=== PATIENT | male | born 1945 | race Caucasian/White ===

== ENCOUNTER 2021-02-13 10:56 | Inpatient (IN) ==
[2021-02-13] MEDS ORDERED: SODIUM CHLORIDE 0.9% 1000ML 1,000 ML IV STA (12:32)
[2021-02-13] MEDS ORDERED: VANCOMYCIN HCL 2,250 MG in SODIUM CHLORIDE 0.9% 500 ML IV STA (12:32)
[2021-02-13] MEDS ORDERED: VANCOMYCIN CONSULT ACTIVE PRN ×2 (12:32→21:26)
[2021-02-13] MEDS ORDERED: cefTRIAXone SODIUM 2,000 MG/70 ML BAG IV STA (12:34)
[2021-02-13] MEDS ORDERED: SODIUM CHLORIDE 0.9% 1000ML 1,000 ML IV ONE (12:36)
[2021-02-13 13:12] LABS: Basophils # (auto) 0.01 K/uL (0-0.2); Basophils % (auto) 0.2 %; Eosinophils # (auto) 0.05 K/uL (0-0.5); Eosinophils % (auto) 0.9 %; Hematocrit (blood only) 41.1 % (42-52); Hemoglobin 13.9 g/dL (14.0-18.0); Immature Granulocytes # (auto) 0.01 K/uL (0.00-0.02); Immature Granulocytes % (auto) 0.2 %; Lymphocytes # (auto) 0.62 K/uL (1.2-3.4); Lymphocytes % (auto) 11.3 %; Mean Corpuscular Hemoglobin 31.5 pg (25-34); Mean Corpuscular Hgb Conc 33.8 g/dL (32-36); Mean Corpuscular Volume 93.2 fL (80-100); Mean Platelet Volume 9.7 fL (7.4-10.4); Monocytes # (auto) 0.57 K/uL (0.11-0.59); Monocytes % (auto) 10.4 %; Neutrophils # (auto) 4.24 K/uL (1.4-6.5); Platelet Count 141 K/uL (130-400); RDW Coefficient of Variation 14.8 % (11.5-14.5); RDW Standard Deviation 50.2 fL (36.4-46.3); Red Blood Count 4.41 M/uL (4.7-6.1)
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
[2021-02-13 13:31] LABS: BUN Creatinine Ratio 16.3 (10-20); Calcium 8.7 mg/dl (8.5-10.1); Creatinine Clr Calc Pharmacy 68.4 ml/min; Est GFR (African American) 80.5 ml/min; Est GFR (Non-African American) 69.4 ml/min
[2021-02-13 13:37] LABS: Albumin Globulin Ratio 0.7 (0.9-2); Bilirubin,Total 0.4 mg/dl (0.2-1); Globulin 4.1 gm/dl (2.5-4.0); Total Protein 7.1 gm/dl (6.4-8.2)
--- NOTE | 2021-02-13 14:10 | XRay Report ---
SINGLE VIEW CHEST CLINICAL HISTORY: Fever. FINDINGS: An AP, portable, upright chest radiograph is obtained. No prior studies are available for c omparison at the time of dictation. The patient is status post midline sternotomy. The heart is top n ormal for projection. The pulmonary vasculature is noncongested. There is mild elevation of the right hemidiaphragm with bibasilar scarring/atelectasis. No airspace consolidation or large pleural effusi on is identified. No pneumothorax is seen. The skeletal structures are osteopenic. The bony thorax is grossly intact. Fusion hardware is seen in the lower cervical spine. IMPRESSION: No acute cardiopulmonary abnormality. ACT 112: Negative or not required by law. Electronically signed by: Kevin Oglesby M.D. 02/13/2021 2:08 PM
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
[2021-02-13] MEDS ORDERED: metroNIDAZOLE 500 MG/100 ML BAG IV STA (15:34)
[2021-02-13] MEDS ORDERED: OPTIRAY 320 100ml IV ONE (16:49)
--- NOTE | 2021-02-13 17:21 | CT Scan Report ---
CT OF THE ABDOMEN AND PELVIS WITH CONTRAST CLINICAL HISTORY: pain pump, abdominal cellulitis COMPARISON STUDY: None. TECHNIQUE: Following IV administration of 94 mL of Optiray, axial images of the abdomen and pelvis we re obtained from the lung bases to the proximal femurs. Images were reviewed in the axial, sagittal, and coronal planes. IV contrast was administered without complication. Automated exposure control wa s utilized for the study. A dose lowering technique was utilized adhering to the principles of ALARA . CT DOSE: 701.84 mGy.cm FINDINGS: Linear bibasilar opacities within the lower lungs favor atelectasis. Note is made of a 2.2 cm hepatic lobe cyst. Multiple subcentimeter hepatic lesions are too small to characterize but favor cysts. Moderate splenomegaly is noted. The adrenal glands, kidneys and pancreas are unremarkable. The re is no biliary or pancreatic ductal dilatation. There is no evidence for a bowel obstruction. The c aliber and wall thickness of small large bowel are normal. Major vasculature is patent. Postoperative findings within the lumbar spine are noted. Intrathecal pain pump is noted. Tip is at the upper T9 l evel. There is a left lower abdominal wall reservoir. Note is made of a thick wall rim-enhancing flui d collection along the superior aspect of the reservoir that measures approximately 5.9 x 1.6 cm. The re is no soft tissue gas. There is adjacent skin thickening and subcutaneous stranding suggestive of cellulitis. There are no additional fluid collections. Integrity of the proximal aspect of the cathet er cannot be assessed due to streak artifact from the reservoir. IMPRESSION: 1. Thick-walled rim-enhancing fluid collection along the superior aspect of the left lower abdominal wall reservoir. Sterility of this fluid collection cannot be assessed by CT however the findings sugg est an infectious process given associated subcutaneous stranding and skin thickening suggestive of c ellulitis. Findings discussed with Dr. Perez at time of dictation. Integrity of the proximal asp ect of the catheter cannot be assessed given streak artifact from the reservoir. 2. No bowel obstruction. 3. Moderate splenomegaly. ACT 112: Negative or not required by law. Electronically signed by: Amrit Fields M.D. 02/13/2021 5:19 PM
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
[2021-02-13] MEDS: CEFEPIME 1,000 MG in SYRINGE 0 ML IV SCH (22:32)
[2021-02-13] MEDS: ZINC SULFATE 220 MG CAPSULE PO SCH (22:32)
[2021-02-13] MEDS: SERTRALINE HCL 50 MG TABLET PO SCH (22:33)
[2021-02-13] MEDS: NORTRIPTYLINE HCL 25 MG CAP PO SCH (22:33)
[2021-02-13] MEDS: PRAMIPEXOLE DIHYDROCHLO 0.5 MG TAB PO SCH (22:33)
[2021-02-13] MEDS: MIRTAZAPINE TAB 15 MG TAB PO SCH (22:33)
[2021-02-13] MEDS: POTASSIUM CHLORIDE CRTAB 20 MEQ TABCR PO SCH (22:33)
[2021-02-13] MEDS: ROSUVASTATIN CALCIUM 5 MG TAB PO SCH (22:33)
[2021-02-13] MEDS: GABAPENTIN 100 MG CAP PO SCH (22:33)
[2021-02-13] MEDS: DOCUSATE SODIUM 100 MG CAP PO SCH (22:34)
[2021-02-13] MEDS: CHOLECALCIFEROL 1,000 UNITS 25 MCG TAB PO SCH (22:34)
[2021-02-13] MEDS: MULTIVITAMIN TAB PO SCH (22:34)
[2021-02-13] MEDS: FINASTERIDE 5 MG TAB PO SCH (22:34)
[2021-02-13] MEDS: FERROUS SULFATE 325 MG TAB PO SCH (22:34)
[2021-02-13] MEDS ORDERED: ARTIFICIAL TEARS OP OINT 3.5 GM TUBE OP PRN (22:35)
[2021-02-13] MEDS: CELECOXIB 100 MG CAP PO SCH (22:35)
--- NOTE | 2021-02-13 22:59 | Pharmacy Report ---
Pharmacy Abx Dose Short Note - Date of Service February 13, 2021 - Assessment & Plan Assessment 75 year old M admitted secondary to a possible skin and skin structure infection surrounding intrathecal pain pump * Started on Vancomycin, Ceftriaxone and Flagyl in ED. Switched to Vancomycin and Cefepime on admission. Cefepime dose may need increased if patient worsens. * Afebrile and without leukocytosis. Cultures pending - LLQ cx from outpatient setting with rare GPCs. * To OR in the AM Plan Vancomycin * Loading Dose: 2250 mg IV x 1 (25 mg/kg) * Maintenance Dose: 1250 mg IV every 12 hours (14 mg/kg) * Targeting an AUC/TYREL goal of 400-600 mg/L.hr * No trough will be ordered unless therapy to extend beyond 48 hours Pharmacy will continue to follow and will adjust dose/frequency as necessary. Thank you.
[2021-02-14] MEDS: VANCOMYCIN HCL 1,250 MG in SODIUM CHLORIDE 0.9% 250 ML IV SCH ×2 (01:55→15:48)
[2021-02-14] MEDS: LEVOTHYROXINE SODIUM 75 MCG TABLET PO SCH (05:32)
[2021-02-14 07:24] LABS: Basophils # (auto) 0.01 K/uL (0-0.2); Basophils % (auto) 0.2 %; Eosinophils # (auto) 0.08 K/uL (0-0.5); Eosinophils % (auto) 1.9 %; Hematocrit (blood only) 40.3 % (42-52); Hemoglobin 13.6 g/dL (14.0-18.0); Lymphocytes # (auto) 0.78 K/uL (1.2-3.4); Lymphocytes % (auto) 18.7 %; Mean Corpuscular Hemoglobin 31.6 pg (25-34); Mean Corpuscular Hgb Conc 33.7 g/dL (32-36); Mean Corpuscular Volume 93.5 fL (80-100); Mean Platelet Volume 9.9 fL (7.4-10.4); Monocytes # (auto) 0.38 K/uL (0.11-0.59); Monocytes % (auto) 9.1 %; Neutrophils # (auto) 2.92 K/uL (1.4-6.5); Neutrophils % (auto) 70.1 %; Platelet Count 159 K/uL (130-400); RDW Coefficient of Variation 14.6 % (11.5-14.5); RDW Standard Deviation 49.8 fL (36.4-46.3); Red Blood Count 4.31 M/uL (4.7-6.1); White Blood Count 4.17 K/uL (4.8-10.8)
[2021-02-14 07:51] LABS: BUN Creatinine Ratio 14.2 (10-20); Calcium 8.6 mg/dl (8.5-10.1); Creatinine Clr Calc Pharmacy 74.2 ml/min; Est GFR (African American) 90.9 ml/min; Est GFR (Non-African American) 78.4 ml/min; Potassium 4.2 mmol/L (3.5-5.1)
[2021-02-14] MEDS: TRIAMTERENE/HCTZ 37.5/25MG CAP PO SCH (09:01)
[2021-02-14] MEDS: CELECOXIB 100 MG CAP PO SCH (09:01)
[2021-02-14] MEDS: PANTOprazole 40 MG TAB PO SCH (09:01)
[2021-02-14] MEDS: PRAMIPEXOLE DIHYDROCHLO 0.5 MG TAB PO SCH ×2 (09:02→20:25)
[2021-02-14] MEDS: GABAPENTIN 100 MG CAP PO SCH ×3 (09:02→20:23)
[2021-02-14] MEDS: CHOLECALCIFEROL 1,000 UNITS 25 MCG TAB PO SCH ×2 (09:02→20:25)
[2021-02-14] MEDS: DOCUSATE SODIUM 100 MG CAP PO SCH ×3 (09:02→20:25)
[2021-02-14] MEDS: CEFEPIME 1,000 MG in SYRINGE 0 ML IV SCH (09:06)
--- NOTE | 2021-02-14 10:52 | Hospitalist Progress Note ---
Date of Service February 14, 2021 Assessment & Plan (1) Intrathecal pump infection: Plan: Staph species in cultureswitch to cefazolin plus Vanco; OR today for pump removal; ID consult (2) Degenerative disc disease: Plan: Patient with significant pain syndrome. Being followed by pain management, will defer to them regarding further treatment postoperatively after pump was removed (3) Hyperlipidemia: Plan: Continue Crestor 5 mg or pharmacy equivalent (4) Sleep apnea: Plan: Patient is on home BiPAP, will need to continue this while here (5) Pulmonary embolism: Plan: Eliquis on hold; resume after okayed by pain management.; SCDs for now Admission and Anticipated Discharge Date Admission Date: February 13, 2021 Subjective Follow-up of infection at the site of pumpno new issues; for pump removal today Physical Exam Physical Exam: Constitutional and general: No acute distress, looks biologic age Head and face: No puffiness, atraumatic Eyes: No scleral icterus, extraocular movements normal Neck: Supple, no JVD Musculoskeletal: No acute joint swelling, no bony abnormalities Skin/dermatologic/integument: No rash, no purpura Hematologic and lymphatic: pallor +, no petechia Gastrointestinal/abdomen: Large area of erythema at site of pump Neurologic: Cranial nerves intact, nonfocal Psychiatry: Awake, alert, pleasant, communicative Cardiovascular: Heart rhythm regular, no rub, no murmur, no gallop Respiratory: Chest movements equal, no use of accessory muscles, no adventitious sounds Extremities: No edema, no cyanosis Results & Data Results & Data ([facility]) Vital Signs (Past 12 Hours) Vital Signs Temp Pulse Pulse Pulse Resp BP Pulse Ox 02/14/21 07:41 36.9 C 80 16 124/70 93 02/14/21 07:39 70 02/14/21 03:00 36.8 C 67 20 104/61 95 02/13/21 23:21 37.3 C 80 20 136/77 96 Laboratory Results Laboratory Results - last 24 hr 02/13/21 02/13/21 02/13/21 13:03 13:03 13:03 WBC 5.50 RBC 4.41 L Hgb 13.9 L Hct 41.1 L MCV 93.2 MCH 31.5 MCHC 33.8 RDW Std Deviation 50.2 H RDW Coeff of Jana 14.8 H Plt Count 141 MPV 9.7 Immature Gran % (Auto) 0.2 Neut % (Auto) 77.0 Lymph % (Auto) 11.3 [place] % (Auto) 10.4 Eos % (Auto) 0.9 Baso % (Auto) 0.2 Neut # (Auto) 4.24 Lymph # (Auto) 0.62 L [place] # (Auto) 0.57 Eos # (Auto) 0.05 Baso # (Auto) 0.01 Immature Gran # (Auto) 0.01 Sodium 137 Potassium 4.0 Chloride 107 Carbon Dioxide 27 Anion Gap 3.0 BUN 17 Creatinine 1.04 Est Cr Clr Drug Dosing 68.4 Est GFR ( Amer) 80.5 Est GFR (Non-Af Amer) 69.4 BUN/Creatinine Ratio 16.3 Glucose 89 Lactate 0.9 Calcium 8.7 Total Bilirubin 0.4 AST 39 H ALT 53 Alkaline Phosphatase 71 Total Protein 7.1 Albumin 3.0 L Globulin 4.1 H Albumin/Globulin Ratio 0.7 L COVID-19 Eval Order SARS-CoV-2 (PCR) 02/13/21 02/13/21 02/14/21 13:13 13:13 06:54 WBC 4.17 L RBC 4.31 L Hgb 13.6 L Hct 40.3 L MCV 93.5 MCH 31.6 MCHC 33.7 RDW Std Deviation 49.8 H RDW Coeff of Jana 14.6 H Plt Count 159 MPV 9.9 Immature Gran % (Auto) 0.0 Neut % (Auto) 70.1 Lymph % (Auto) 18.7 [place] % (Auto) 9.1 Eos % (Auto) 1.9 Baso % (Auto) 0.2 Neut # (Auto) 2.92 Lymph # (Auto) 0.78 L [place] # (Auto) 0.38 Eos # (Auto) 0.08 Baso # (Auto) 0.01 Immature Gran # (Auto) 0.00 Sodium Potassium Chloride Carbon Dioxide Anion Gap BUN Creatinine Est Cr Clr Drug Dosing Est GFR ( Amer) Est GFR (Non-Af Amer) BUN/Creatinine Ratio Glucose Lactate Calcium Total Bilirubin AST ALT Alkaline Phosphatase Total Protein Albumin Globulin Albumin/Globulin Ratio COVID-19 Eval Order Covid19 at [facility] SARS-CoV-2 (PCR) NEGATIVE 02/14/21 06:54 WBC RBC Hgb Hct MCV MCH MCHC RDW Std Deviation RDW Coeff of Jana Plt Count MPV Immature Gran % (Auto) Neut % (Auto) Lymph % (Auto) [place] % (Auto) Eos % (Auto) Baso % (Auto) Neut # (Auto) Lymph # (Auto) [place] # (Auto) Eos # (Auto) Baso # (Auto) Immature Gran # (Auto) Sodium 142 Potassium 4.2 Chloride 113 H Carbon Dioxide 26 Anion Gap 3.0 BUN 13 Creatinine 0.94 Est Cr Clr Drug Dosing 74.2 Est GFR ( Amer) 90.9 Est GFR (Non-Af Amer) 78.4 BUN/Creatinine Ratio 14.2 Glucose 95 Lactate Calcium 8.6 Total Bilirubin AST ALT Alkaline Phosphatase Total Protein Albumin Globulin Albumin/Globulin Ratio COVID-19 Eval Order SARS-CoV-2 (PCR) PG Care Time/CCT Total # of Minutes Spent Total Time Spent with Patient: Total time spent is greater than 50% in coordination of care (as documented) at patient's floor/unit and/or counseling patient: Coding Level of Care Code 90649 Subseq Hosp Care Lvl 3 Diagnoses Intrathecal pump infection T85.738D Encounter type: subsequent encounter Degenerative disc disease Hyperlipidemia E78.5 Sleep apnea G47.30 Pulmonary embolism I26.99 (1) Intrathecal pump infection Encounter type: subsequent encounter Qualified Code(s): T85.738D - Infection and inflammatory reaction due to other nervous system device, implant or graft, subsequent encounter
[2021-02-14] MEDS ORDERED: PROTHROMBIN COMP CONC- KCENTRA 2,000 UNITS in SYRINGE 0 ML IV SCH (11:30)
[2021-02-14] MEDS ORDERED: CLINDAMYCIN PHOS 300 MG/2 ML VIAL ONE (12:28)
[2021-02-14] MEDS ORDERED: LIDOCAINE 2%/EPINEPHRINE 1:100,000 20ML ONE (12:28)
--- NOTE | 2021-02-14 12:32 | History & Physical Bridge Note ---
Date of Service February 14, 2021 History & Physical Bridge Note I have examined the patient, reviewed the History & Physical and in the interval since the performance of the History & Physical I have noted the following changes of clinical significance: no changes noted. Patient understands that a wound vac will be applied and will require wound clinic appointments.
[2021-02-14] MEDS ORDERED: PROPOFOL IV EMULSION 10 MG/ML 20 ML VIAL IV ONE (12:34)
[2021-02-14] MEDS ORDERED: fentaNYL citrate 100 MCG/2 ML VIAL ONE ×2 (12:34→14:05)
[2021-02-14] MEDS ORDERED: LIDOCAINE 2% 2 ML VIAL/AMP(20MG/ML) INFIL ONE (12:34)
[2021-02-14] MEDS ORDERED: ONDANSETRON INJ 2 MG/ML 2 ML VIAL ONE (12:36)
[2021-02-14] MEDS ORDERED: ACETAMINOPHEN 1000 MG/100 ML IV IV ONE (12:39)
[2021-02-14] MEDS ORDERED: ePHEDrine sulfate 50 MG/ML AMP IV PRN (12:40)
[2021-02-14] MEDS ORDERED: ONDANSETRON INJ 2 MG/ML 2 ML VIAL IV PRN (12:40)
[2021-02-14] MEDS ORDERED: HYDROmorphone INJ 2 MG/ML SYR/VIAL IV PRN (12:40)
[2021-02-14] MEDS ORDERED: ATROPINE SULFATE 0.1 MG/ML 10ML SYR IV PRN (12:40)
[2021-02-14] MEDS ORDERED: fentaNYL citrate 100 MCG/2 ML VIAL IV PRN (12:40)
[2021-02-14] MEDS ORDERED: DEXAMETHASONE SOD INJ 4 MG/ML VIAL ONE (13:36)
[2021-02-14] MEDS ORDERED: PHENYLEPHRINE HCL 10 MG/ML VIAL ONE (13:36)
--- NOTE | 2021-02-14 14:41 | Operative Report ---
Post Operative Report Pre & Post Diagnosis Operation Date: 02/14/21 13:00 Pre-Op Diagnosis: Infected Intrathecal Pain Pump Post-Op Diagnosis: Infected Intrathecal Pain Pump I identified the patient and participated in the time-out.: Yes Procedure Operation Date: 02/14/21 13:00 Actual Procedures p Removal of Pump Segment Intrathecal Catheter, Incision/Drainage/Debridement of Pocket and Application of Wound Vac(Not Applicable) - Shena Brown DO Surgeon Shena Brown DO [employer] none Estimated Blood Loss 45 Findings Consistent with Post-Op Diagnosis Fluids per anes record Specimens deep pocket culture intrathecal pump intrathecal catheter Drains wound vac Anesthesia Type General Complications none Disposition Accompanied Patient To Recovery: No Disposition: Recovery Room Indications infected intrathecal pump Description of Procedure INTRATHECAL PUMP AND CATHETER EXPLANTATION, INCISION/DRAINAGE/DEBRIDEMENT PUMP POCKET, PULSE IRRIGATION OF POCKET, WOUND VAC APPLICATION PREOPERATIVE DIAGNOSIS: infected intrathecal pump POSTOPERATIVE DIAGNOSIS: Same. COMPLICATIONS: None. SURGEONS: Dr. Shena Brown. EBL: 45ml ANESTHESIA: General. MATERIAL FORWARDED TO THE LAB: Explanted pump and catheter, deep pocket culture INDICATIONS: The patient was identified as having a intrathecal pocket infection. He does not have neurologic signs signaling spinal catheter segment infection. Decision was made to remove his intrathecal pump and a large portion of his intrathecal catheter maintaining the terminal spinal segment if possible. The patient was explained the risks, benefits, alternatives of the procedure and agreed to proceed as above. He was informed of his increased risks of bleeding and possible epidural hematoma due to Eliquis dosing despite Kcentra administration. Informed consent was obtained and witnessed. A time out was performed after the patient was brought into the Operating Room. Antibiotics were given. The patient was then induced with general anesthesia without complications and was placed in right lateral decubitus position. Fluoroscopy was utilized throughout the procedure. The thoracolumbar spine was prepped with duraprep and betadine and draped in sterile fashion. Using fluoroscopy to identify the catheter, incision was made and the intrathecal catheter spinal segment was identified utilizing electrocautery and blunt dissection. The catheter was ligated with 2 separate 0 silk sutures and 3 vascular clips. The incision was irrigated with aqueous iodophor and hemostasis was excellent. The incision was closed with 0 strata fix and 3-0 strata fix followed by Dermabond and Prineo. An Aquacel dressing was placed. Next, the drapes were removed the left lower quadrant was prepped with DuraPrep and Betadine. Sterile drapes were applied. An incision was made over the intrathecal pocket and the intrathecal pump was exposed utilizing blunt dissection and electrocautery. A large amount of purulent fluid was drained from the incision, cultures were taken. The intrathecal pump and the nonspinal segment of the catheter were removed along with the 4-0 Prolene retaining sutures. Some nonviable tissue was noted within the pocket and debrided. Hemostasis was good and was achieved through electrocautery. A 3 L bag of saline with clindamycin 300 mg was placed on a pulse crematory attendant and copious amounts of irrigation were utilized. Next, a wound vac was applied per protocol and suction of 125 mmHg was achieved. The patient emerged from general anesthesia and was taken to the recovery room in stable condition. I attest to the content of the Intraoperative Record and any orders documented therein. Any exceptions are noted below.
--- NOTE | 2021-02-14 15:08 | Anesthesiology Progress Note ---
Date of Service February 14, 2021 Anesthesia Post Procedure Vital Signs Vital Signs: Temp Pulse Pulse Pulse Resp BP BP 02/14/21 14:43 36.9 C 83 15 142/68 H 02/14/21 12:35 37.1 C 71 18 119/76 02/14/21 11:29 36.7 C 68 16 128/78 02/14/21 07:41 36.9 C 80 16 124/70 02/14/21 07:39 70 02/14/21 03:00 36.8 C 67 20 104/61 02/13/21 23:21 37.3 C 80 20 136/77 02/13/21 22:20 82 02/13/21 21:29 37.5 C 82 20 02/13/21 16:30 79 20 122/74 02/13/21 15:30 87 23 136/81 BP Pulse Ox 02/14/21 14:43 96 02/14/21 12:35 18 L 02/14/21 11:29 93 02/14/21 07:41 93 02/14/21 07:39 02/14/21 03:00 95 02/13/21 23:21 96 02/13/21 22:20 02/13/21 21:29 126/82 93 02/13/21 16:30 95 02/13/21 15:30 93 Pain Intensity Abdomen: Pain Intensity: 5 Transfer of Care Handoff Completed per policy Notes Mental Status: alert / awake / arousable and participated in evaluation Patient Amnestic to Procedure: Yes Nausea / Vomiting: adequately controlled Pain: adequately controlled Airway Patency, RR, SpO2: stable & adequate BP & HR: stable & adequate (pvcs) Hydration State: stable & adequate Anesthetic Complications: no major complications apparent and Pt Satisfied with anesthetic care
[2021-02-14] MEDS: MoRPHine SULFATE IR 15 MG TAB (IMMEDIATE RELEASE) PO PRN ×2 (16:38→23:45)
[2021-02-14] MEDS: CHECK fentaNYL PATCH PLACEMENT SCH ×2 (16:39→23:23)
[2021-02-14] MEDS: fentaNYL 25 MCG/HR TDSY TD SCH (16:39)
[2021-02-14] MEDS: ceFAZolin 2000MG 2,000 MG/15 ML SYR IV SCH (16:42)
[2021-02-14] MEDS: FERROUS SULFATE 325 MG TAB PO SCH (20:22)
[2021-02-14] MEDS: ROSUVASTATIN CALCIUM 5 MG TAB PO SCH (20:22)
[2021-02-14] MEDS: POTASSIUM CHLORIDE CRTAB 20 MEQ TABCR PO SCH (20:23)
[2021-02-14] MEDS: MIRTAZAPINE TAB 15 MG TAB PO SCH (20:23)
[2021-02-14] MEDS: ZINC SULFATE 220 MG CAPSULE PO SCH (20:23)
[2021-02-14] MEDS: MULTIVITAMIN TAB PO SCH (20:24)
[2021-02-14] MEDS: NORTRIPTYLINE HCL 25 MG CAP PO SCH (20:24)
[2021-02-14] MEDS: SERTRALINE HCL 50 MG TABLET PO SCH (20:24)
[2021-02-14] MEDS: FINASTERIDE 5 MG TAB PO SCH (20:24)
[2021-02-15] MEDS: ceFAZolin 2000MG 2,000 MG/15 ML SYR IV SCH ×3 (01:24→17:39)
[2021-02-15] MEDS: ACETAMINOPHEN 500 MG TAB PO PRN ×2 (01:25→19:32)
[2021-02-15] MEDS: VANCOMYCIN HCL 1,250 MG in SODIUM CHLORIDE 0.9% 250 ML IV SCH (01:25)
[2021-02-15] MEDS: LEVOTHYROXINE SODIUM 75 MCG TABLET PO SCH (06:18)
[2021-02-15] MEDS: MoRPHine SULFATE IR 15 MG TAB (IMMEDIATE RELEASE) PO PRN ×3 (06:18→23:45)
[2021-02-15 06:33] LABS: Eosinophils # (auto) 0.02 K/uL (0-0.5); Eosinophils % (auto) 0.5 %; Hematocrit (blood only) 40.5 % (42-52); Hemoglobin 13.4 g/dL (14.0-18.0); Lymphocytes # (auto) 0.78 K/uL (1.2-3.4); Lymphocytes % (auto) 18.8 %; Mean Corpuscular Hemoglobin 31.1 pg (25-34); Mean Corpuscular Hgb Conc 33.1 g/dL (32-36); Mean Platelet Volume 9.8 fL (7.4-10.4); Monocytes # (auto) 0.38 K/uL (0.11-0.59); Monocytes % (auto) 9.1 %; Neutrophils # (auto) 2.98 K/uL (1.4-6.5); Neutrophils % (auto) 71.6 %; Platelet Count 178 K/uL (130-400); RDW Coefficient of Variation 14.6 % (11.5-14.5); RDW Standard Deviation 50.3 fL (36.4-46.3); Red Blood Count 4.31 M/uL (4.7-6.1); White Blood Count 4.16 K/uL (4.8-10.8)
[2021-02-15 07:14] LABS: Albumin Globulin Ratio 0.7 (0.9-2); Albumin Level 2.5 gm/dl (3.4-5.0); BUN Creatinine Ratio 12.6 (10-20); Bilirubin,Total 0.2 mg/dl (0.2-1); Calcium 8.5 mg/dl (8.5-10.1); Creatinine Clr Calc Pharmacy 68.4 ml/min; Est GFR (African American) 82.4 ml/min; Est GFR (Non-African American) 71.1 ml/min; Globulin 3.8 gm/dl (2.5-4.0); Potassium 4.2 mmol/L (3.5-5.1); Total Protein 6.3 gm/dl (6.4-8.2)
[2021-02-15] MEDS: TRIAMTERENE/HCTZ 37.5/25MG CAP PO SCH (07:51)
[2021-02-15] MEDS: PANTOprazole 40 MG TAB PO SCH (07:51)
[2021-02-15] MEDS: DOCUSATE SODIUM 100 MG CAP PO SCH ×3 (07:51→19:25)
[2021-02-15] MEDS: GABAPENTIN 100 MG CAP PO SCH ×3 (07:51→19:24)
[2021-02-15] MEDS: PRAMIPEXOLE DIHYDROCHLO 0.5 MG TAB PO SCH ×2 (07:52→19:31)
[2021-02-15] MEDS: CHOLECALCIFEROL 1,000 UNITS 25 MCG TAB PO SCH ×2 (07:52→19:30)
[2021-02-15] MEDS: CHECK fentaNYL PATCH PLACEMENT SCH ×3 (07:52→23:46)
--- NOTE | 2021-02-15 09:19 | Pain Management Progress Note ---
Date of Service February 15, 2021 Assessment & Plan (1) Intrathecal pump infection: Encounter type: subsequent encounter Qualified Code(s): T85.738D - Infection and inflammatory reaction due to other nervous system device, implant or graft, subsequent encounter (2) Lumbar postlaminectomy syndrome: Plan: 1. Dressing on thoracolumbar region has been changed. 2. Continue with wound vac treatment. 3. Continue current medication regimen of Fentanyl patch 25mcg/hr and MS IR 15mg x 6 hours PRN. 4. Continue antibiotic treatment. 5. Will continue to monitor today to make sure he is tolerating the opioid medications and plan for discharge to home tomorrow. Admission and Anticipated Discharge Date Admission Date: February 13, 2021 Subjective Intrathecal pump was explanted yesterday due to infection that started 5 days ago. He has been placed on Fentanyl 25mg and MS IR 15mg x 6 hours and is reporting adequate pain relief of the chronic back pain this morning. He is reporting a pain of 3/10 currently. He has been able to get out of bed without difficulty. Plan to walk around the hospital after he finishes breakfast. There is some discomfort with the wound vac with movement but tolerable. He denies any side effects to the medications. No confusion, dizziness, drowsiness, or constipation. Physical Exam Physical Exam: GENERAL: This is a 75 year old male that does not appear in any acute distress. Able to go from sitting to standing without difficulty. HEAD/FACE: Normocephalic and atraumatic. EYES: No drainage or conjunctival injection. ENT: Nose without bleeding or discharge. Oral mucosa moist. NECK: Full ROM without apparent pain. No swelling or masses noted. RESPIRATORY: Patient with unlabored breathing. No signs of respiratory distress. CHEST/AXILLA: Chest movement symmetrical. No deformities noted. CARDIOVASCULAR: Patients heart rate is regular, with pulse rate as documented. No edema noted. ABDOMEN/GI: Wound vac in the LLQ abdomen. BACK: Moves without difficulty SKIN: The erythema along the left lower abdomen has significantly improved in brightness. From bright red now to a very mild pink. Size of erythema has decreased slightly. Thoracolumbar incision appear well with Prineo in place. MS/EXTREMITY: No swelling, no deformities. Moving extremities appropriately. NEURO: Alert and appears oriented. Speech is fluent. Cranial Nerves are grossly intact. PSYCH: Alert, pleasant, affect is calm
--- NOTE | 2021-02-15 09:22 | Hospitalist Progress Note ---
Date of Service February 15, 2021 Assessment & Plan (1) Intrathecal pump infection: Plan: MSSA in first culturestop Vanco; ID consulted (2) Degenerative disc disease: Plan: Patient with significant pain syndrome. Being followed by pain management, will defer to them regarding further treatment postoperatively after pump was removed (3) Hyperlipidemia: Plan: Continue Crestor 5 mg or pharmacy equivalent (4) Sleep apnea: Plan: Patient is on home BiPAP, will need to continue this while here (5) Pulmonary embolism: Plan: Eliquis on hold; discussed with Dr. Brownprovisionally resume tomorrow as long as drainage acceptable; SCDs for now Plan: Mild leukopenia can be followed Admission and Anticipated Discharge Date Admission Date: February 13, 2021 Subjective Intrathecal pump removaldoing much better. Physical Exam Physical Exam: Constitutional and general: No acute distress, looks biologic age Head and face: No puffiness, atraumatic Eyes: No scleral icterus, extraocular movements normal Neck: Supple, no JVD Musculoskeletal: No acute joint swelling, no bony abnormalities Skin/dermatologic/integument: No rash, no purpura Hematologic and lymphatic: pallor +, no petechia Gastrointestinal/abdomen: Wound VAC in place Neurologic: Cranial nerves intact, nonfocal Psychiatry: Awake, alert, pleasant, communicative Cardiovascular: Heart rhythm regular, no rub, no murmur, no gallop Respiratory: Chest movements equal, no use of accessory muscles, no adventitious sounds Extremities: No edema, no cyanosis Results & Data Results & Data ([facility]) Vital Signs (Past 12 Hours) Vital Signs Temp Pulse Pulse Pulse Resp BP Pulse Ox 02/15/21 07:00 36.7 C 76 20 132/77 92 02/15/21 03:00 37.1 C 77 18 120/73 96 02/14/21 23:00 37.3 C 88 20 128/75 92 02/14/21 22:20 67 Laboratory Results Laboratory Results - last 24 hr 02/15/21 02/15/21 06:11 06:11 WBC 4.16 L RBC 4.31 L Hgb 13.4 L Hct 40.5 L MCV 94.0 MCH 31.1 MCHC 33.1 RDW Std Deviation 50.3 H RDW Coeff of Jana 14.6 H Plt Count 178 MPV 9.8 Immature Gran % (Auto) 0.0 Neut % (Auto) 71.6 Lymph % (Auto) 18.8 [place] % (Auto) 9.1 Eos % (Auto) 0.5 Baso % (Auto) 0.0 Neut # (Auto) 2.98 Lymph # (Auto) 0.78 L [place] # (Auto) 0.38 Eos # (Auto) 0.02 Baso # (Auto) 0.00 Immature Gran # (Auto) 0.00 Sodium 141 Potassium 4.2 Chloride 111 H Carbon Dioxide 24 Anion Gap 5.0 BUN 13 Creatinine 1.02 Est Cr Clr Drug Dosing 68.4 Est GFR ( Amer) 82.4 Est GFR (Non-Af Amer) 71.1 BUN/Creatinine Ratio 12.6 Glucose 122 H Calcium 8.5 Total Bilirubin 0.2 AST 25 ALT 40 Alkaline Phosphatase 62 Total Protein 6.3 L Albumin 2.5 L Globulin 3.8 Albumin/Globulin Ratio 0.7 L Specimen Hemolysis PG Care Time/CCT Total # of Minutes Spent Total Time Spent with Patient: Total time spent is greater than 50% in coordination of care (as documented) at patient's floor/unit and/or counseling patient: Coding Level of Care Code 08355 Subseq Hosp Care Lvl 2 Diagnoses Intrathecal pump infection T85.738D Encounter type: subsequent encounter Degenerative disc disease Hyperlipidemia E78.5 Sleep apnea G47.30 Pulmonary embolism I26.99 (1) Intrathecal pump infection Encounter type: subsequent encounter Qualified Code(s): T85.738D - Infection and inflammatory reaction due to other nervous system device, implant or graft, subsequent encounter
[2021-02-15] MEDS ORDERED: MAGNESIUM HYDROXIDE SUSP 30 ML UDC PO PRN (11:00)
[2021-02-15] MEDS: POLYETHYLENE (MIRALAX) 17 GM PACK PO SCH (12:09)
[2021-02-15] MEDS: MIRTAZAPINE TAB 15 MG TAB PO SCH (19:24)
[2021-02-15] MEDS: POTASSIUM CHLORIDE CRTAB 20 MEQ TABCR PO SCH (19:24)
[2021-02-15] MEDS: MULTIVITAMIN TAB PO SCH (19:25)
[2021-02-15] MEDS: ZINC SULFATE 220 MG CAPSULE PO SCH (19:25)
[2021-02-15] MEDS: FINASTERIDE 5 MG TAB PO SCH (19:25)
[2021-02-15] MEDS: SERTRALINE HCL 50 MG TABLET PO SCH (19:30)
[2021-02-15] MEDS: FERROUS SULFATE 325 MG TAB PO SCH (19:31)
[2021-02-15] MEDS: NORTRIPTYLINE HCL 25 MG CAP PO SCH (19:31)
[2021-02-15] MEDS: FLUTICASONE PROPIONATE NA SPR 16 GM BTL SCH (19:32)
[2021-02-15] MEDS: ROSUVASTATIN CALCIUM 5 MG TAB PO SCH (19:32)
[2021-02-16] MEDS: ceFAZolin 2000MG 2,000 MG/15 ML SYR IV SCH ×3 (00:39→17:20)
[2021-02-16] MEDS: MoRPHine SULFATE IR 15 MG TAB (IMMEDIATE RELEASE) PO PRN ×3 (06:07→18:26)
[2021-02-16] MEDS: LEVOTHYROXINE SODIUM 75 MCG TABLET PO SCH (06:07)
[2021-02-16 07:34] LABS: Basophils # (auto) 0.01 K/uL (0-0.2); Basophils % (auto) 0.2 %; Eosinophils # (auto) 0.11 K/uL (0-0.5); Eosinophils % (auto) 2.4 %; Hematocrit (blood only) 44.4 % (42-52); Immature Granulocytes # (auto) 0.01 K/uL (0.00-0.02); Immature Granulocytes % (auto) 0.2 %; Lymphocytes # (auto) 1.24 K/uL (1.2-3.4); Mean Corpuscular Hgb Conc 33.8 g/dL (32-36); Mean Corpuscular Volume 94.7 fL (80-100); Mean Platelet Volume 9.5 fL (7.4-10.4); Monocytes # (auto) 0.45 K/uL (0.11-0.59); Monocytes % (auto) 9.8 %; Neutrophils # (auto) 2.77 K/uL (1.4-6.5); Neutrophils % (auto) 60.4 %; Platelet Count 203 K/uL (130-400); RDW Coefficient of Variation 14.5 % (11.5-14.5); RDW Standard Deviation 50.2 fL (36.4-46.3); Red Blood Count 4.69 M/uL (4.7-6.1); White Blood Count 4.59 K/uL (4.8-10.8)
[2021-02-16] MEDS: CHOLECALCIFEROL 1,000 UNITS 25 MCG TAB PO SCH ×2 (07:58→21:04)
[2021-02-16] MEDS: PRAMIPEXOLE DIHYDROCHLO 0.5 MG TAB PO SCH ×2 (07:59→21:03)
[2021-02-16] MEDS: PANTOprazole 40 MG TAB PO SCH (07:59)
[2021-02-16] MEDS: DOCUSATE SODIUM 100 MG CAP PO SCH ×3 (07:59→21:04)
[2021-02-16] MEDS: GABAPENTIN 100 MG CAP PO SCH ×3 (07:59→21:03)
[2021-02-16] MEDS: POLYETHYLENE (MIRALAX) 17 GM PACK PO SCH (07:59)
[2021-02-16] MEDS: CHECK fentaNYL PATCH PLACEMENT SCH ×2 (07:59→16:07)
[2021-02-16] MEDS: TRIAMTERENE/HCTZ 37.5/25MG CAP PO SCH (08:00)
[2021-02-16 08:09] LABS: Albumin Level 2.8 gm/dl (3.4-5.0); BUN Creatinine Ratio 17.6 (10-20); Calcium 8.8 mg/dl (8.5-10.1); Creatinine Clr Calc Pharmacy 55.3 ml/min; Est GFR (African American) 65.7 ml/min; Est GFR (Non-African American) 56.7 ml/min; Potassium 4.1 mmol/L (3.5-5.1)
[2021-02-16 08:12] LABS: Albumin Globulin Ratio 0.7 (0.9-2); Bilirubin,Total 0.4 mg/dl (0.2-1); Total Protein 6.8 gm/dl (6.4-8.2)
--- NOTE | 2021-02-16 09:03 | Pain Management Progress Note ---
Date of Service February 16, 2021 Assessment & Plan (1) Intrathecal pump infection: Encounter type: subsequent encounter Qualified Code(s): T85.738D - Infection and inflammatory reaction due to other nervous system device, implant or graft, subsequent encounter (2) Lumbar postlaminectomy syndrome: Plan: 1. Dressing on thoracolumbar region has been changed. 2. Continue with wound vac treatment. 3. Continue current medication regimen of Fentanyl patch 25mcg/hr and MS IR 15mg x 6 hours PRN. Prescriptions for these medications at discharge have been placed in his chart. 4. Continue antibiotic treatment. 5. Pain is well controlled. From a pain management standpoint will sign off on the patient. Please contact with any questions or concerns. 6. He will be contacted with a follow up appointment with our office. Admission and Anticipated Discharge Date Admission Date: February 13, 2021 Subjective Status post intrathecal pump explantation on 02/14/21. He is currently on Fentanyl 25mg and MS IR 15mg x 6 hours and is reporting adequate pain relief of the chronic back pain. He is pleased with his current pain relief. He is reporting a pain of 2/10 currently. He has been able to ambulate without any limitation. Wound vac is in place. He denies any side effects to the medications. No confusion, dizziness, drowsiness, or constipation. Physical Exam Physical Exam: GENERAL: This is a 75 year old male that does not appear in any acute distress. Able to go from sitting to standing without difficulty. HEAD/FACE: Normocephalic and atraumatic. EYES: No drainage or conjunctival injection. ENT: Nose without bleeding or discharge. Oral mucosa moist. NECK: Full ROM without apparent pain. No swelling or masses noted. RESPIRATORY: Patient with unlabored breathing. No signs of respiratory distress. CHEST/AXILLA: Chest movement symmetrical. No deformities noted. CARDIOVASCULAR: Patients heart rate is regular, with pulse rate as documented. No edema noted. ABDOMEN/GI: Wound vac in the LLQ abdomen. BACK: Moves without difficulty SKIN: Mild pink surrounding the incision site. Thoracolumbar incision appears well with Prineo in place. MS/EXTREMITY: No swelling, no deformities. Moving extremities appropriately. NEURO: Alert and appears oriented. Speech is fluent. Cranial Nerves are grossly intact. PSYCH: Alert, pleasant, affect is calm
--- NOTE | 2021-02-16 10:30 | Hospitalist Progress Note ---
Date of Service February 16, 2021 Assessment & Plan (1) Intrathecal pump infection: Plan: MSSA in all cultures; ID input appreciated; at present provisionally plan cefazolin for 2 weeks and then p.o. Keflex or alternativemay need reassessment; Dr. Brown thinks infection limited to pocket but will need follow-up; should ideally follow-up with ID if feasible; case management is having trouble with home health arrangement; PICC/midline today; will also need to wound clinic follow-up (2) Degenerative disc disease: Plan: Pain good control (3) Hyperlipidemia: Plan: Continue Crestor 5 mg or pharmacy equivalent (4) Sleep apnea: Plan: Patient is on home BiPAP, will need to continue this while here (5) Pulmonary embolism: Plan: Discussed with Dr. Browncan resume Eliquisdone Plan: Mild leukopenia can be followed; at present I discontinued daily labs Admission and Anticipated Discharge Date Admission Date: February 13, 2021 Subjective Presentation with intrathecal pump infectionpump removed; doing well; minimal drainage from wound VAC Physical Exam Physical Exam: Constitutional and general: No acute distress, looks biologic age Head and face: No puffiness, atraumatic Eyes: No scleral icterus, extraocular movements normal Neck: Supple, no JVD Musculoskeletal: No acute joint swelling, no bony abnormalities Skin/dermatologic/integument: No rash, no purpura Hematologic and lymphatic: pallor +, no petechia Gastrointestinal/abdomen: Wound VAC in place Neurologic: Cranial nerves intact, nonfocal Psychiatry: Awake, alert, pleasant, communicative Cardiovascular: Heart rhythm regular, no rub, no murmur, no gallop Respiratory: Chest movements equal, no use of accessory muscles, no adventitious sounds Extremities: No edema, no cyanosis Results & Data Results & Data ([facility]) Vital Signs (Past 12 Hours) Vital Signs Temp Pulse Pulse Resp BP Pulse Ox 02/16/21 08:00 36.9 C 93 H 18 155/72 H 02/16/21 04:00 36.4 C L 69 18 139/74 98 02/15/21 23:00 36.6 C 81 18 149/93 H 98 PG Care Time/CCT Total # of Minutes Spent Total Time Spent with Patient: Total time spent is greater than 50% in coordination of care (as documented) at patient's floor/unit and/or counseling patient: Coding Level of Care Code 22579 Subseq Hosp Care Lvl 2 Diagnoses Intrathecal pump infection T85.738D Encounter type: subsequent encounter Degenerative disc disease Hyperlipidemia E78.5 Sleep apnea G47.30 Pulmonary embolism I26.99 (1) Intrathecal pump infection Encounter type: subsequent encounter Qualified Code(s): T85.738D - Infection and inflammatory reaction due to other nervous system device, implant or graft, subsequent encounter
[2021-02-16] MEDS: APIXABAN 5 MG TABLET PO SCH ×2 (11:44→21:04)
[2021-02-16] MEDS: ROSUVASTATIN CALCIUM 5 MG TAB PO SCH (21:03)
[2021-02-16] MEDS: SERTRALINE HCL 50 MG TABLET PO SCH (21:03)
[2021-02-16] MEDS: MIRTAZAPINE TAB 15 MG TAB PO SCH (21:03)
[2021-02-16] MEDS: FINASTERIDE 5 MG TAB PO SCH (21:03)
[2021-02-16] MEDS: POTASSIUM CHLORIDE CRTAB 20 MEQ TABCR PO SCH (21:04)
[2021-02-16] MEDS: MULTIVITAMIN TAB PO SCH (21:04)
[2021-02-16] MEDS: NORTRIPTYLINE HCL 25 MG CAP PO SCH (21:04)
[2021-02-16] MEDS: FLUTICASONE PROPIONATE NA SPR 16 GM BTL SCH (21:05)
[2021-02-16] MEDS: ZINC SULFATE 220 MG CAPSULE PO SCH (21:05)
[2021-02-16] MEDS: FERROUS SULFATE 325 MG TAB PO SCH (21:05)
[2021-02-17] MEDS: CHECK fentaNYL PATCH PLACEMENT SCH ×3 (00:29→16:11)
[2021-02-17] MEDS: ceFAZolin 2000MG 2,000 MG/15 ML SYR IV SCH ×3 (00:30→17:42)
[2021-02-17] MEDS: MoRPHine SULFATE IR 15 MG TAB (IMMEDIATE RELEASE) PO PRN ×4 (00:30→18:58)
[2021-02-17] MEDS: LEVOTHYROXINE SODIUM 75 MCG TABLET PO SCH (06:30)
[2021-02-17] MEDS: PRAMIPEXOLE DIHYDROCHLO 0.5 MG TAB PO SCH ×2 (08:30→20:38)
[2021-02-17] MEDS: TRIAMTERENE/HCTZ 37.5/25MG CAP PO SCH (08:30)
[2021-02-17] MEDS: PANTOprazole 40 MG TAB PO SCH (08:30)
[2021-02-17] MEDS: DOCUSATE SODIUM 100 MG CAP PO SCH ×3 (08:30→20:35)
[2021-02-17] MEDS: GABAPENTIN 100 MG CAP PO SCH ×3 (08:30→20:37)
[2021-02-17] MEDS: APIXABAN 5 MG TABLET PO SCH ×2 (08:30→20:34)
[2021-02-17] MEDS: CHOLECALCIFEROL 1,000 UNITS 25 MCG TAB PO SCH ×2 (08:30→20:35)
[2021-02-17] MEDS: POLYETHYLENE (MIRALAX) 17 GM PACK PO SCH (08:30)
--- NOTE | 2021-02-17 11:55 | Hospitalist Progress Note ---
Date of Service February 17, 2021 Assessment & Plan (1) Intrathecal pump infection: Plan: MSSA in all cultures; ID input noted and appreciated; at present provisionally plan cefazolin for 2 weeks and then p.o. Keflex or alternativemay need reassessment; Dr. Brown thinks infection limited to pocket but will need [id number] not behaving like someone with lack of source control, that is doing very well; should ideally follow-up with ID if feasible; case management is having trouble with home health arrangement; will also need to wound clinic follow-up; ultrasound-guided deep IV inserted (2) Degenerative disc disease: Plan: Pain good control (3) Hyperlipidemia: Plan: Continue Crestor 5 mg or pharmacy equivalent (4) Sleep apnea: Plan: Patient is on home BiPAP, will need to continue this while here (5) Pulmonary embolism: Plan: Back on Eliquis; lab in a.m. (6) Hypertension: Plan: Noted fluctuating blood pressures but asymptomatic; stop thiazide/triamterene and observe Plan: Mild leukopenia can be followed Admission and Anticipated Discharge Date Admission Date: February 13, 2021 Subjective Presentation with intrathecal pump infectionpump removed; doing well Physical Exam Physical Exam: Constitutional and general: No acute distress, looks biologic age Head and face: No puffiness, atraumatic Eyes: No scleral icterus, extraocular movements normal Neck: Supple, no JVD Musculoskeletal: No acute joint swelling, no bony abnormalities Skin/dermatologic/integument: No rash, no purpura Hematologic and lymphatic: pallor +, no petechia Gastrointestinal/abdomen: Wound VAC in place Neurologic: Cranial nerves intact, nonfocal Psychiatry: Awake, alert, pleasant, communicative Cardiovascular: Heart rhythm regular, no rub, no murmur, no gallop Respiratory: Chest movements equal, no use of accessory muscles, no adventitious sounds Extremities: No edema, no cyanosis Results & Data Results & Data ([facility]) Vital Signs (Past 12 Hours) Vital Signs Temp Pulse Pulse Pulse Resp BP BP 02/17/21 11:24 78 02/17/21 11:22 36.6 C 87 18 98/66 L 02/17/21 07:29 36.7 C 80 18 94/61 L 02/17/21 03:45 36.7 C 87 20 108/71 Pulse Ox 02/17/21 11:24 02/17/21 11:22 94 02/17/21 07:29 92 02/17/21 03:45 94 PG Care Time/CCT Total # of Minutes Spent Total Time Spent with Patient: Total time spent is greater than 50% in coordination of care (as documented) at patient's floor/unit and/or counseling patient: Coding Level of Care Code 24899 Subseq Hosp Care Lvl 2 Diagnoses Intrathecal pump infection T85.738D Encounter type: subsequent encounter Degenerative disc disease Hyperlipidemia E78.5 Sleep apnea G47.30 Pulmonary embolism I26.99 Hypertension I10 (1) Intrathecal pump infection Encounter type: subsequent encounter Qualified Code(s): T85.738D - Infection and inflammatory reaction due to other nervous system device, implant or graft, subsequent encounter
[2021-02-17] MEDS: fentaNYL 25 MCG/HR TDSY TD SCH (16:11)
[2021-02-17] MEDS: FERROUS SULFATE 325 MG TAB PO SCH (20:36)
[2021-02-17] MEDS: FINASTERIDE 5 MG TAB PO SCH (20:36)
[2021-02-17] MEDS: FLUTICASONE PROPIONATE NA SPR 16 GM BTL SCH (20:37)
[2021-02-17] MEDS: MULTIVITAMIN TAB PO SCH (20:37)
[2021-02-17] MEDS: MIRTAZAPINE TAB 15 MG TAB PO SCH (20:38)
[2021-02-17] MEDS: ZINC SULFATE 220 MG CAPSULE PO SCH (20:39)
[2021-02-17] MEDS: POTASSIUM CHLORIDE CRTAB 20 MEQ TABCR PO SCH (20:39)
[2021-02-17] MEDS: ROSUVASTATIN CALCIUM 5 MG TAB PO SCH (20:39)
[2021-02-17] MEDS: NORTRIPTYLINE HCL 25 MG CAP PO SCH (20:39)
[2021-02-17] MEDS: SERTRALINE HCL 50 MG TABLET PO SCH (20:40)
[2021-02-18] MEDS: MoRPHine SULFATE IR 15 MG TAB (IMMEDIATE RELEASE) PO PRN ×4 (01:02→16:17)
[2021-02-18] MEDS: CHECK fentaNYL PATCH PLACEMENT SCH ×3 (01:03→16:19)
[2021-02-18] MEDS: ceFAZolin 2000MG 2,000 MG/15 ML SYR IV SCH ×3 (01:04→17:21)
[2021-02-18] MEDS: ACETAMINOPHEN 500 MG TAB PO PRN (01:09)
[2021-02-18] MEDS: LEVOTHYROXINE SODIUM 75 MCG TABLET PO SCH (06:32)
[2021-02-18 06:47] LABS: Basophils # (auto) 0.01 K/uL (0-0.2); Basophils % (auto) 0.2 %; Eosinophils # (auto) 0.15 K/uL (0-0.5); Eosinophils % (auto) 3.2 %; Hemoglobin 15.3 g/dL (14.0-18.0); Immature Granulocytes # (auto) 0.05 K/uL (0.00-0.02); Immature Granulocytes % (auto) 1.1 %; Lymphocytes # (auto) 1.27 K/uL (1.2-3.4); Mean Corpuscular Hemoglobin 31.2 pg (25-34); Mean Corpuscular Hgb Conc 33.3 g/dL (32-36); Mean Corpuscular Volume 93.9 fL (80-100); Mean Platelet Volume 9.5 fL (7.4-10.4); Monocytes # (auto) 0.69 K/uL (0.11-0.59); Monocytes % (auto) 14.7 %; Neutrophils # (auto) 2.53 K/uL (1.4-6.5); Neutrophils % (auto) 53.8 %; Platelet Count 220 K/uL (130-400); RDW Coefficient of Variation 14.5 % (11.5-14.5); RDW Standard Deviation 49.4 fL (36.4-46.3)
[2021-02-18 07:04] LABS: BUN Creatinine Ratio 32.6 (10-20); Calcium 8.9 mg/dl (8.5-10.1); Creatinine Clr Calc Pharmacy 53.3 ml/min; Est GFR (African American) 69.1 ml/min; Est GFR (Non-African American) 59.6 ml/min; Magnesium 2.2 mg/dl (1.8-2.4); Potassium 4.6 mmol/L (3.5-5.1)
[2021-02-18 07:10] LABS: Albumin Globulin Ratio 0.8 (0.9-2); Bilirubin,Total 0.2 mg/dl (0.2-1); Phosphorus 3.4 mg/dl (2.5-4.9)
[2021-02-18] MEDS: PANTOprazole 40 MG TAB PO SCH (09:57)
[2021-02-18] MEDS: PRAMIPEXOLE DIHYDROCHLO 0.5 MG TAB PO SCH ×2 (09:57→22:12)
[2021-02-18] MEDS: CHOLECALCIFEROL 1,000 UNITS 25 MCG TAB PO SCH ×2 (09:58→22:11)
[2021-02-18] MEDS: GABAPENTIN 100 MG CAP PO SCH ×3 (09:58→22:10)
[2021-02-18] MEDS: APIXABAN 5 MG TABLET PO SCH ×2 (09:58→22:10)
[2021-02-18] MEDS: DOCUSATE SODIUM 100 MG CAP PO SCH ×3 (09:58→22:08)
[2021-02-18] MEDS: POLYETHYLENE (MIRALAX) 17 GM PACK PO SCH (09:59)
--- NOTE | 2021-02-18 16:26 | Hospitalist Progress Note ---
Date of Service February 18, 2021 Assessment & Plan (1) Intrathecal pump infection: Plan: POD #4 s/p explantation of pain pump and catheter associated with the pump (not the intrathecal portion of catheter). MSSA grew from office culture as well as intra-op culture. Blood cultures negative. Naomi ESQUIVEL advised 2 weeks of IV ancef, followed by 2 weeks of PO abx (assuming keflex). Dr. Brown believes that infection was limited to the pocket as opposed to tra cking towards the thecal sac. Woundvac in place to abd wall; will be exchanged on Friday of this week. (2) Degenerative disc disease: Plan: Cont fentanyl patch 25mcg q3d Cont morphine PO but change dosing frequency to q4h from q6h Can increase the dose of morphine if needed Cont other home meds - gabapentin, nortriptyline, etc Add k-pad heat prn (3) Hyperlipidemia: Plan: Continue Crestor 5 mg (4) Sleep apnea: Plan: BiPAP (5) Pulmonary embolism: Plan: Eliquis 5mg BID (6) Hypertension: Plan: BPs controlled w/o thiazide/triamterene Cont to observe (7) Hypothyroidism: Plan: check TSH in am cont synthroid (8) BPH (benign prostatic hyperplasia): Plan: Cont home meds no issues Plan: add senna for bowel maintenance given chronic narcotics will remain hospitalized until Friday - woundvac exchanged at that time, etc Admission and Anticipated Discharge Date Admission Date: February 13, 2021 Subjective overnight no significant issues. has baseline back pain "about 4-5" and has been utilizing the prn morphine while here for such. morphine only lasting about 4 hours. having some constipation. no other new complaints. tele - NSR, rare ventricular bigeminy. Review of Systems Review of Systems: gen: no fevers, no chills, no anorexia CV: no chest pain Pulm: no dyspnea or cough GI: no diarrhea, minimal abd discomfort over prior intrathecal pain pump site Skin: prior abd wall cellulitis MUCH improved per patient Physical Exam Physical Exam: gen: NAD, a/o x 3 skin: woundvac in place over LLQ / prior intrathecal pain pump site; demarkation lines present above and below the woundvac site; abd wall erythema is minimal at this time and far from the demarkation lines mouth: MMM, no lesions heart: RRR, s1 s2, no murmur lungs: CTA b/l abd: soft NT ND BS+; woundvac in place ext: no edema, pulses 2+ b/l Results & Data Results & Data ([facility]) Vital Signs (Past 12 Hours) Vital Signs Temp Pulse Pulse Resp BP BP Pulse Ox 02/18/21 15:09 36.3 C L 70 18 118/75 95 02/18/21 11:24 78 02/18/21 11:21 36.6 C 71 18 125/86 95 02/18/21 07:43 36.5 C 86 18 125/85 96 Laboratory Results Laboratory Results - last 24 hr 02/18/21 02/18/21 06:10 06:10 WBC 4.70 L RBC 4.90 Hgb 15.3 Hct 46.0 MCV 93.9 MCH 31.2 MCHC 33.3 RDW Std Deviation 49.4 H RDW Coeff of Jana 14.5 Plt Count 220 MPV 9.5 Immature Gran % (Auto) 1.1 Neut % (Auto) 53.8 Lymph % (Auto) 27.0 [place] % (Auto) 14.7 Eos % (Auto) 3.2 Baso % (Auto) 0.2 Neut # (Auto) 2.53 Lymph # (Auto) 1.27 [place] # (Auto) 0.69 H Eos # (Auto) 0.15 Baso # (Auto) 0.01 Immature Gran # (Auto) 0.05 H Sodium 137 Potassium 4.6 Chloride 102 Carbon Dioxide 30 Anion Gap 5.0 BUN 39 H D Creatinine 1.18 Est Cr Clr Drug Dosing 53.3 Est GFR ( Amer) 69.1 Est GFR (Non-Af Amer) 59.6 BUN/Creatinine Ratio 32.6 H Glucose 95 Calcium 8.9 Phosphorus 3.4 Magnesium 2.2 Total Bilirubin 0.2 AST 20 ALT 23 Alkaline Phosphatase 76 Total Protein 7.0 Albumin 3.0 L Globulin 4.0 Albumin/Globulin Ratio 0.8 L PG Care Time/CCT Total # of Minutes Spent Total Time Spent with Patient: Total time spent is greater than 50% in coordination of care (as documented) at patient's floor/unit and/or counseling patient: Coding Level of Care Code 37073 Subseq Hosp Care Lvl 2 Diagnoses Intrathecal pump infection T85.738D Encounter type: subsequent encounter Degenerative disc disease Hyperlipidemia E78.5 Sleep apnea G47.30 Pulmonary embolism I26.99 Hypertension I10 Hypothyroidism E03.9 BPH (benign prostatic hyperplasia) N40.0 (1) Intrathecal pump infection Encounter type: subsequent encounter Qualified Code(s): T85.738D - Infection and inflammatory reaction due to other nervous system device, implant or graft, subsequent encounter
[2021-02-18] MEDS: SENNA 8.6 MG TAB PO SCH (17:43)
[2021-02-18] MEDS: FLUTICASONE PROPIONATE NA SPR 16 GM BTL SCH (22:07)
[2021-02-18] MEDS: MULTIVITAMIN TAB PO SCH (22:09)
[2021-02-18] MEDS: FERROUS SULFATE 325 MG TAB PO SCH (22:09)
[2021-02-18] MEDS: SERTRALINE HCL 50 MG TABLET PO SCH (22:09)
[2021-02-18] MEDS: ZINC SULFATE 220 MG CAPSULE PO SCH (22:10)
[2021-02-18] MEDS: POTASSIUM CHLORIDE CRTAB 20 MEQ TABCR PO SCH (22:11)
[2021-02-18] MEDS: MIRTAZAPINE TAB 15 MG TAB PO SCH (22:11)
[2021-02-18] MEDS: FINASTERIDE 5 MG TAB PO SCH (22:12)
[2021-02-18] MEDS: NORTRIPTYLINE HCL 25 MG CAP PO SCH (22:12)
[2021-02-18] MEDS: ROSUVASTATIN CALCIUM 5 MG TAB PO SCH (22:13)
[2021-02-19] MEDS: CHECK fentaNYL PATCH PLACEMENT SCH ×3 (00:49→16:13)
[2021-02-19] MEDS: ceFAZolin 2000MG 2,000 MG/15 ML SYR IV SCH ×3 (00:49→16:13)
[2021-02-19] MEDS: LEVOTHYROXINE SODIUM 75 MCG TABLET PO SCH (06:34)
[2021-02-19] MEDS: PRAMIPEXOLE DIHYDROCHLO 0.5 MG TAB PO SCH ×2 (07:54→20:52)
[2021-02-19] MEDS: PANTOprazole 40 MG TAB PO SCH (07:54)
[2021-02-19] MEDS: SENNA 8.6 MG TAB PO SCH (07:54)
[2021-02-19] MEDS: GABAPENTIN 100 MG CAP PO SCH ×3 (07:54→20:49)
[2021-02-19] MEDS: DOCUSATE SODIUM 100 MG CAP PO SCH ×3 (07:54→21:02)
[2021-02-19] MEDS: APIXABAN 5 MG TABLET PO SCH ×2 (07:54→20:56)
[2021-02-19] MEDS: CHOLECALCIFEROL 1,000 UNITS 25 MCG TAB PO SCH ×2 (07:54→20:55)
[2021-02-19] MEDS: POLYETHYLENE (MIRALAX) 17 GM PACK PO SCH (07:54)
[2021-02-19] MEDS: MoRPHine SULFATE IR 15 MG TAB (IMMEDIATE RELEASE) PO PRN ×2 (08:01→16:17)
[2021-02-19] MEDS: FINASTERIDE 5 MG TAB PO SCH (20:48)
[2021-02-19] MEDS: SERTRALINE HCL 50 MG TABLET PO SCH (20:50)
[2021-02-19] MEDS: POTASSIUM CHLORIDE CRTAB 20 MEQ TABCR PO SCH (20:53)
[2021-02-19] MEDS: MULTIVITAMIN TAB PO SCH (20:53)
[2021-02-19] MEDS: FERROUS SULFATE 325 MG TAB PO SCH (20:54)
[2021-02-19] MEDS: NORTRIPTYLINE HCL 25 MG CAP PO SCH (20:54)
[2021-02-19] MEDS: MIRTAZAPINE TAB 15 MG TAB PO SCH (20:54)
[2021-02-19] MEDS: ROSUVASTATIN CALCIUM 5 MG TAB PO SCH (20:56)
[2021-02-19] MEDS: ZINC SULFATE 220 MG CAPSULE PO SCH (20:56)
[2021-02-19] MEDS: FLUTICASONE PROPIONATE NA SPR 16 GM BTL SCH (21:00)
--- NOTE | 2021-02-19 22:18 | Hospitalist Progress Note ---
Date of Service February 19, 2021 Assessment & Plan (1) Intrathecal pump infection: Plan: POD #5 s/p explantation of pain pump and catheter associated with the pump (not the intrathecal portion of catheter). MSSA grew from office culture as well as intra-op culture. Blood cultures negative. Naomi ESQUIVEL advised 2 weeks of IV ancef, followed by 2 weeks of PO abx (assuming keflex). Will make date of pump explantation day #1 of abx thus today is day #[address] Brown believes that infection was limited to the pocket as opposed to tracking towards the thecal sac. Woundvac in place to abd wall; will be exchanged tomorrow. Has us-guided PIV in place for IV abx. (2) Degenerative disc disease: Plan: Cont fentanyl patch 25mcg q3d - needs script for this at discharge Cont morphine PO q4h prn Cont other home meds - gabapentin, nortriptyline, etc Cont k-pad heat prn (3) Hyperlipidemia: Plan: Continue Crestor 5 mg (4) Sleep apnea: Plan: BiPAP (5) Pulmonary embolism: Plan: Eliquis 5mg BID no evidence of any bleeding from operative site with eliquis back on board (6) Hypertension: Plan: BPs controlled w/o thiazide/triamterene Cont to observe (7) Hypothyroidism: Plan: TSH wnl today cont synthroid (8) BPH (benign prostatic hyperplasia): Plan: Cont home meds no issues Plan: woundvac exchange tomorrow will touch base with SW in am to ensure home IV ancef is ordered/ready for him hopefully d/c home tomorrow Admission and Anticipated Discharge Date Admission Date: February 13, 2021 Subjective patient feeling well anxious to go home his back pain is controlled for the most part with fentanyl patch and prn morphine no fevers/chills eating fair no diarrhea no cellulitis remaining on trunk Review of Systems Review of Systems: gen - no fevers, chills or excessive fatigue CV - no chest pain Pulm - no cough or dyspnea Physical Exam Physical Exam: gen: NAD, a/o x 3 skin: woundvac in place over LLQ / prior intrathecal pain pump site; demarkation lines present above and below the woundvac site -- no residual abd wall cellulitis or erythema or warmth mouth: MMM, no lesions heart: RRR, s1 s2, no murmur lungs: CTA b/l abd: soft NT ND BS+; woundvac in place ext: no edema, pulses 2+ b/l psych: pleasant, a/o x 3 Results & Data Results & Data ([facility]) Vital Signs (Past 12 Hours) Vital Signs Temp Pulse Pulse Resp BP Pulse Ox 02/19/21 18:31 36.9 C 85 16 121/78 95 02/19/21 14:52 87 02/19/21 11:19 36.6 C 86 16 127/79 94 Laboratory Results Laboratory Results - last 24 hr 02/19/21 07:08 TSH 3.900 PG Care Time/CCT Total # of Minutes Spent Total Time Spent with Patient: Total time spent is greater than 50% in coordination of care (as documented) at patient's floor/unit and/or counseling patient: Coding Level of Care Code 30992 Subseq Hosp Care Lvl 2 Diagnoses Intrathecal pump infection T85.738D Encounter type: subsequent encounter Degenerative disc disease Hyperlipidemia E78.5 Sleep apnea G47.30 Pulmonary embolism I26.99 Hypertension I10 Hypothyroidism E03.9 BPH (benign prostatic hyperplasia) N40.0 (1) Intrathecal pump infection Encounter type: subsequent encounter Qualified Code(s): T85.738D - Infection and inflammatory reaction due to other nervous system device, implant or graft, subsequent encounter
[2021-02-20] MEDS: CHECK fentaNYL PATCH PLACEMENT SCH ×2 (00:26→08:40)
[2021-02-20] MEDS: MoRPHine SULFATE IR 15 MG TAB (IMMEDIATE RELEASE) PO PRN ×2 (00:26→06:00)
[2021-02-20] MEDS: ceFAZolin 2000MG 2,000 MG/15 ML SYR IV SCH ×2 (00:27→08:40)
[2021-02-20] MEDS: LEVOTHYROXINE SODIUM 75 MCG TABLET PO SCH (06:00)
[2021-02-20 07:08] LABS: BUN Creatinine Ratio 35.1 (10-20); C Reactive Protein 0.41 mg/dl (0-0.29); Calcium 8.3 mg/dl (8.5-10.1); Creatinine Clr Calc Pharmacy 58.7 ml/min; Est GFR (African American) 77.7 ml/min; Est GFR (Non-African American) 67.1 ml/min; Potassium 4.4 mmol/L (3.5-5.1)
[2021-02-20] MEDS: PRAMIPEXOLE DIHYDROCHLO 0.5 MG TAB PO SCH (08:38)
[2021-02-20] MEDS: DOCUSATE SODIUM 100 MG CAP PO SCH (08:38)
[2021-02-20] MEDS: PANTOprazole 40 MG TAB PO SCH (08:38)
[2021-02-20] MEDS: SENNA 8.6 MG TAB PO SCH (08:38)
[2021-02-20] MEDS: GABAPENTIN 100 MG CAP PO SCH (08:38)
[2021-02-20] MEDS: CHOLECALCIFEROL 1,000 UNITS 25 MCG TAB PO SCH (08:38)
[2021-02-20] MEDS: APIXABAN 5 MG TABLET PO SCH (08:39)
[2021-02-20] MEDS: POLYETHYLENE (MIRALAX) 17 GM PACK PO SCH (08:40)
--- NOTE | 2021-02-20 11:42 | Discharge Summary ---
Date of Service date of admission - February 13, 2021 date of discharge - February 20, 2021 Admission HPI Per Admitting Provider This is a 75-year-old male with past medical history lumbar stenosis, has intrathecal pain pump that was replaced by Dr. Castro on 08/15/2020 that presents today from their office with complaints of infection. Patient is pleasant and a good historian. Patient had noted over the past 3-4 days that some erythema has been developing in his left lower abdomen over the area of his pain pump. He noted that he was having some withdrawal symptoms several days ago as well. He feels that the pump may have stopped working. Unfortunately, the erythema seem to progress. He did note some subjective fevers at home the other day. As he was concerned there may be an infection, he was seen at the pain clinic earlier today. There, they removed 100 mL of fluid and sent this for culture. The patient apparently called the office and been started on Keflex, had received only 1 dose without much relief. Because of the worsening erythema, the pain management office sent him to the emergency room for admission and likely removal of the pain pump. Patient was seen and examined in the ER. He is very pleasant, tells me that he is always in pain is approximately a 5 out of 10. He has erythema which seems to be outside of the borders that were drawn on his abdomen. He was afebrile and his vital signs are otherwise stable. Work-up also revealed he had no white count or elevated lactic acid. I do see that he is scheduled for 9 AM tomorrow morning to have the pain pump removed. Principal Diagnosis Pain pump infection 2nd to MSSA Discharge Exam Gen: NAD, a/o x 3, looks good Neck: no JVD Mouth: no thrush Heart: RRR, s1, s2, no murmur Lungs: CTA B/l Abd: soft, mildly tender near operative site (former pain pump site), BS+, woundvac in place over operative site Ext: no edema, pulses 2+ b/l Skin: abdominal wall with woundvac in place over operatite site Discharge Data Allergies Allergy/AdvReac Type Severity Reaction Status Date / Time Penicillins Allergy Severe throat Verified 02/26/21 10:30 swelled shut, passed out, bulls eye lesions Consultations [facility] Infectious Diseases Wound Care Procedures Performed Operation Date: 02/14/21 13:00 Actual Procedures p Removal of Pump Segment Intrathecal Catheter, Incision and Drainage of Pocket and Application of Wound Vac - Shena Brown DO Ordered Studies Chest X-Ray 02/13/21 12:32 SINGLE VIEW CHEST CLINICAL HISTORY: Fever. FINDINGS: An AP, portable, upright chest radiograph is obtained. No prior studies are available for comparison at the time of dictation. The patient is status post midline sternotomy. The heart is top normal for projection. The pulmonary vasculature is noncongested. There is mild elevation of the right hemidiaphragm with bibasilar scarring/atelectasis. No airspace consolidation or large pleural effusion is identified. No pneumothorax is seen. The skeletal structures are osteopenic. The bony thorax is grossly intact. Fusion hardware is seen in the lower cervical spine. IMPRESSION: No acute cardiopulmonary abnormality. ACT 112: Negative or not required by law. Electronically signed by: Kevin Oglesby M.D. 02/13/2021 2:08 PM Abdomen/Pelvis CT 02/13/21 15:34 CT OF THE ABDOMEN AND PELVIS WITH CONTRAST CLINICAL HISTORY: pain pump, abdominal cellulitis COMPARISON STUDY: None. TECHNIQUE: Following IV administration of 94 mL of Optiray, axial images of the abdomen and pelvis were obtained from the lung bases to the proximal femurs. Images were reviewed in the axial, sagittal, and coronal planes. IV contrast was administered without complication. Automated exposure control was utilized for the study. A dose lowering technique was utilized adhering to the principles of ALARA. CT DOSE: 701.84 mGy.cm FINDINGS: Linear bibasilar opacities within the lower lungs favor atelectasis. Note is made of a 2.2 cm hepatic lobe cyst. Multiple subcentimeter hepatic lesions are too small to characterize but favor cysts. Moderate splenomegaly is noted. The adrenal glands, kidneys and pancreas are unremarkable. There is no biliary or pancreatic ductal dilatation. There is no evidence for a bowel obstruction. The caliber and wall thickness of small large bowel are normal. Major vasculature is patent. Postoperative findings within the lumbar spine are noted. Intrathecal pain pump is noted. Tip is at the upper T9 level. There is a left lower abdominal wall reservoir. Note is made of a thick wall rim-enhancing fluid collection along the superior aspect of the reservoir that measures approximately 5.9 x 1.6 cm. There is no soft tissue gas. There is adjacent skin thickening and subcutaneous stranding suggestive of cellulitis. There are no additional fluid collections. Integrity of the proximal aspect of the catheter cannot be assessed due to streak artifact from the reservoir. IMPRESSION: 1. Thick-walled rim-enhancing fluid collection along the superior aspect of the left lower abdominal wall reservoir. Sterility of this fluid collection cannot be assessed by CT however the findings suggest an infectious process given asso ciated subcutaneous stranding and skin thickening suggestive of cellulitis. Findings discussed with Dr. Perez at time of dictation. Integrity of the proximal aspect of the catheter cannot be assessed given streak artifact from the reservoir. 2. No bowel obstruction. 3. Moderate splenomegaly. ACT 112: Negative or not required by law. Electronically signed by: Amrit Fields M.D. 02/13/2021 5:19 PM Hospital Course (1) Intrathecal pump infection: On 02/13/21 the patient presented to the [facility]. He reported 2-3 days of redness over the pain pump site. 105cc of purulent material was obtained from the pump site and sent for culture. This culture ultimately grew MSSA. He was referred to the ER, and underwent CT abd/pelvis which showed infection of the pain pump pocket. He was admitted and started on broad-spectrum IV antibiotics. On 02/14/21 he was taken to the OR by Dr Shena Brown. She performed explantation of the pain pump as well as the catheter portion associated with the pump (not the intrathecal portion of catheter). MSSA grew from the intra-op culture. Blood cultures remained negative. A woundvac was placed over the operative site. After identification of MSSA from his cultures he was narrowed/transitioned to IV ancef. Naomi ESQUIVEL was consulted and advised 2 weeks of IV ancef, followed by 2 weeks of PO antibiotics in the form of keflex. Day #1 of antibiotics was 02/14/21 (explantation date). Dr. Brown believed that the infection was limited to the pocket as opposed to tracking towards the thecal sac. At discharge the following were advised - * 1 additional week of IV ancef via u/s-guided peripheral IV * then, 2 weeks of oral keflex 500mg QID * woundvac over operate site * close follow-up with the [facility] pain clinic within a week of discharge * home health nursing for woundvac assistance (2) Degenerative disc disease: Given that the patient's pain pump was removed he was initiated on fentanyl patch 25mcg q3d by the pain management team. He was also given oral morphine IR for breakthrough pain. He will continue his other home meds including gabapentin, nortriptyline, etc. Prescriptions were completed for the fentanyl patch and morphine IR by the pain management team. (3) Hyperlipidemia: Continue Crestor 5 mg (4) Sleep apnea: Continue BiPAP (5) Pulmonary embolism: Continue Eliquis 5mg BID. No evidence of any bleeding from the operative site once eliquis was resumed post-operatively. (6) Hypertension: BPs were controlled w/o his usual thiazide/triamterene medication. Advised NOT resuming such post-discharge. Systolic BPs were 100-130 throughout the stay. (7) Hypothyroidism: TSH wnl during this visit. Continue synthroid. (8) BPH (benign prostatic hyperplasia): Cont home meds. no issues while here. (9) Splenomegaly: Seen incidentally on CT abd/pelvis. Reactive to his pain pump infection? Recommend serial exams to ensure resolution. Could also consider a spleen u/s in the weeks following discharge to ensure it is resolving. (10) Hepatic cyst: Seen incidentally on CT abd/pelvis at admission. There was a dominant 2+cm cyst with multiple smaller cysts. Consider dedicated liver u/s or MRI to ensure these lesions are cysts and nothing else. Total Time Total Time Spent Total Time Spent (In Minutes): 45 Discharge Plan Discharge Items Patient Disposition: Home - Home Health Services Reason For Visit: PAIN PUMP INFECTION Discharge Diagnosis: Pain pump infection due to staph aureus - improved with: * removal of pain pump on 02/14/[address] Brown * IV antibiotics Activity: As commented below Activity Comment: as tolerated Bathing: Keep incision dry Bathing Comment: keep IV and your wound vac sites clean/dry/covered during sponge baths Non-emergency contact: Primary Care Provider and Specialist Call non-emergency contact if: you have any medication questions, your symptoms worsen, your pain is not controlled, your pain is worsening, you have a fever, your wound has increased redness, your wound has increased drainage and your wound pain has increased Follow-up/Referrals: Shena Brown DO [Physician] - 02/26/21 10:00 am (If you have any questions or need to change this appointment, please call [phone].) Sloane Yin CRNP [Primary Care Provider] - (Please call your primary care provider to set up a follow-up discharge appointment in 7-10 days.) Diet: Heart Healthy Addtl Attending Provider Instructions: Mr Menjivar, You were admitted to the hospital for cellulitis (skin infection) of the area surrounding your pain pump as well as an actual infection of the pain pump itself. You were taken to the operating room by Dr Brown on 02/14/21 and the pump along with a portion of the catheter were removed. Cultures from the office as well as cultures from the surgery both grew staph aureus, a common bacterium that often causes skin infection and infection of devices. You made nice improvement while here with IV antibiotics and a wound vac. Dr Brown's team started fentanyl patch and immediate release morphine by mouth for your pain in herbert of the pump. Recommendations - 1. Continue IV cefazolin (ancef) use until 03/01/21. This is your IV antibiotic. It is 3 times each day. 2. On 03/02/21 you will switch from the IV antibiotic over to oral antibiotics. At that time please start CEPHALEXIN 500mg four times daily x 14 days. * Dr Brown will be seeing you in the interim and she can make necessary changes to your antibiotics if things are not improving, etc. 3. Take probiotics twice a day for 1 month to help prevent diarrhea from your antibiotics. 4. Please STOP both your triamterene-HCTZ water pill along with your potassium. Your blood pressure has been normal without this medication. 5. For constipation from the narcotic pain killers can use a combination of [id number] miralax with senna. Miralax can be taken once to twice daily. Senna is 2 tabs once a day. 6. For pain - * fentanyl patch 25mcg every 3 days; your patch is due to be changed TODAY at about 4-5pm. * morphine IR every 6 hours as needed for pain. Follow-up - see separate section Return to [facility] if - * you have fevers over 100.5 degrees * you have worsening redness or swelling over the abdominal wall near the woundvac site * you have uncontrolled abdominal pain, abdominal wall pain, back pain, etc despite your pain medications * you have shortness of breath * you develop severe diarrhea * any other concerns It was our pleasure caring for you at [facility]! -Dr Bauman Pending Studies at Discharge: No Stand-Alone Forms: My [facility], Smoking Cessation Medications and DC Order Prescriptions: New sennosides [Senokot] 8.6 mg Tablet 17.2 mg PO QAM Qty: 30 RF: 0 fentanyl 25 mcg/hr Patch 72 Hour 25 mcg transdermal Q3D Qty: 10 RF: 0 morphine 15 mg Tablet 15 mg PO Q6H PRN (Reason: pain) Qty: 1 RF: 0 Lactinex 1 million cell tablet,chewable 1 tab PO BID Qty: 60 RF: 0 cefazolin 1 gram recon soln 2 g IV Q8H Qty: 25 RF: 0 cephalexin 500 mg capsule 500 mg PO Q6H 14 Days Qty: 56 RF: 0 polyethylene glycol 3350 [Miralax] 17 gram/dose powder 17 g PO DAILY Qty: 510 RF: 2 Continued Retaine HPMC (PF) 0.3 % drops 1 drops OP QID PRN (Reason: Dry Eyes) RF: 0 aspirin [Adult Low Dose Aspirin] 81 mg tablet,delayed release (DR/EC) 81 mg PO QPM RF: 0 cholecalciferol (vitamin D3) [Vitamin D3] 1,000 unit capsule 1,000 units PO BID RF: 0 flunisolide 25 mcg (0.025 %) spray,non-aerosol 2 sprays INTNAS QPM RF: 0 omeprazole 20 mg capsule,delayed release(DR/EC) 20 mg PO QAM RF: 0 vitamin E (dl, acetate) 1,000 unit capsule 1,000 units PO QPM RF: 0 Eliquis 5 mg tablet 5 mg PO BID RF: 0 celecoxib [Celebrex] 100 mg capsule 100 mg PO BID RF: 0 levothyroxine [Tirosint] 75 mcg capsule 75 mcg PO QAM RF: 0 finasteride [Proscar] 5 mg tablet 5 mg PO QPM RF: 0 nortriptyline [Pamelor] 25 mg capsule 25 mg PO HS RF: 0 pramipexole [Mirapex] 0.5 mg tablet 0.5 mg PO BID RF: 0 sertraline [Zoloft] 100 mg tablet 150 mg PO HS RF: 0 sildenafil [Viagra] 100 mg tablet 50 mg PO DAILY PRN (Reason: Sexual Activity) RF: 0 gabapentin [Neurontin] 100 mg capsule 100 mg PO TID RF: 0 ferrous sulfate [Feosol] 325 mg (65 mg iron) tablet 325 mg PO QPM RF: 0 mirtazapine [Remeron] 15 mg tablet 15 mg PO HS RF: 0 multivitamin [Daily Multi-Vitamin] Tablet 1 tab PO QPM RF: 0 docusate sodium [Colace] 100 mg Capsule 200 mg PO TID RF: 0 rosuvastatin [Crestor] 10 mg Tablet 5 mg PO QPM RF: 0 zinc 50 mg Tablet 100 mg PO QPM RF: 0 Narcan 4 mg/actuation spray,non-aerosol 1 sprays INTNAS Q3M PRN (Reason: opioid overdose) RF: 0 Discontinued triamterene-hydrochlorothiazid 37.5-25 mg capsule 1 cap PO QAM RF: 0 potassium chloride [Klor-Con M20] 20 mEq tablet,ER particles/crystals 20 meq PO QPM RF: 0 Pain Pump 0 mg SC UD RF: 0 Discharge Orders: Discharge Order (Routine); Ordered 02/20/21 Ordered By: Vicente Bauman Admission Data Admit Date/Time: 02/13/21 18:25 Attending Provider: Vicente Bauman Admit Provider: Jaden Ly Primary Care Provider: Sloane Yin I. Other Providers: [facility] ; Jaden Ly ; Shena Brown ; Tristan Boland ; Gianluca Portillo ; Conner West I. ; Williams Carmona II ; Nevaeh Stauffer ; Gael Means ; [facility] Other Interventions: Discharge Summary Assessment (RN) Last Done: 02/20/21 12:10 Coding Level of Care Code D/C DAY MANAGEMENT >30 MINS Diagnoses Intrathecal pump infection T85.738D Encounter type: subsequent encounter Degenerative disc disease Hyperlipidemia E78.5 Sleep apnea G47.30 Pulmonary embolism I26.99 Hypertension I10 Hypothyroidism E03.9 BPH (benign prostatic hyperplasia) N40.0 Splenomegaly R16.1 Hepatic cyst K76.89
--- NOTE | 2021-02-20 11:42 | Pain Management Progress Note ---
Date of Service February 20, 2021 Assessment & Plan (1) Intrathecal pump infection: Encounter type: subsequent encounter Qualified Code(s): T85.738D - Infection and inflammatory reaction due to other nervous system device, implant or graft, subsequent encounter (2) Lumbar stenosis: (3) Chronic neck and back pain: (4) Lumbar postlaminectomy syndrome: Plan: 1. Recommend continuation of fentanyl 25 mcg every 72 hour patch and MSIR 15 mg p.o. every 4 as needed. Prescriptions were placed on the chart for [facility] 2. We will see him back in the office for further evaluation and care. Our office will contact him for appointment. 3. Appreciate the hospitalist's and wound care center help with this patient's care. 4. He will be obtaining his IV antibiotics through the [place] as well as addressing his wound VAC pump. Admission and Anticipated Discharge Date Admission Date: February 13, 2021 Subjective 75-year-old male status post explantation of intrathecal pump reports that he is feeling well and is anxious to go home today. The [place] have been coordinating his wound VAC and IV antibiotics. PICC line is in situ. He reports that his back pain is controlled with his fentanyl patch 25 mcg every 72 hours and prn morphine. He denies other constitutional complaints including meningismus, fever, chills, withdrawal symptoms. Pain Assessment Pain Assessment [facility] Combined Pain Scale: 4-Mild to Mod - Interrupts ADLs. Decrease in job performance Physical Exam Constitutional: WD/WN, vitals as above well developed, well nourished and average body habitus Eyes: PERRL, conjunctivae normal, anicteric sclerae ENMT: external ear and nose normal, oropharynx normal Neck: trachea midline, no thyromegaly Respiratory: normal respiratory effort, lungs clear to auscultation Cardiovascular: RRR, no murmur, no edema Gastrointestinal (Abdomen): Inspection/Auscultation: + abdominal surgical scar and + abdominal surgical incision (wound vac in situ) Percussion/Palpation: abdomen soft; abdomen nontender Musculoskeletal: no cyanosis or clubbing, extremities motor strength 5/5 Skin: no rashes, warm and dry no erythema and no fluctulance Neurologic: PERRL, EOMI, accommodation nl, no face palsy, no dysarthria Psychiatric: A+Ox3, euthymic affect Results (Pain Clinic) Previous Records Review Previous Records: personally reviewed by me
== END 2021-02-20 13:15 | disposition home health service (06) | DRG 92 ==
LOC: ED 10:56 → 2W 18:25 → SUATTDRO 18:25 → 2W 20:58
DX: E03.9 Hypothyroidism, unspecified; N40.0 Benign prostatic hyperplasia without lower urinary tract symptoms; Z88.0 Allergy status to penicillin; F43.10 Post-traumatic stress disorder, unspecified; Z86.711 Personal history of pulmonary embolism; I27.20 Pulmonary hypertension, unspecified; L03.311 Cellulitis of abdominal wall; I10 Essential (primary) hypertension; Z79.82 Long term (current) use of aspirin; Z79.01 Long term (current) use of anticoagulants; E78.5 Hyperlipidemia, unspecified; G47.30 Sleep apnea, unspecified; D72.819 Decreased white blood cell count, unspecified; T85.738A Infection and inflammatory reaction due to other nervous system device, implant or graft, initial encounter